=== PATIENT | male | born 1980 | race Caucasian/White ===

== ENCOUNTER 2023-02-01 13:22 | Emergency (ER) | payer SELFPAY ==
--- NOTE | ~2023-02-01 | XR_ITS ---
EXAMINATION: XR chest 1V portable DATE: 02/01/2023 13:54 INDICATION: Cerebral vascular accident. TECHNIQUE: A single frontal view of the chest was obtained. COMPARISON: None. FINDINGS: There is no pneumonia, pleural effusion, or pneumothorax. The heart size is normal. IMPRESSION: 1. No acute cardiopulmonary disease. Reviewed, dictated and finalized at location E.
--- NOTE | ~2023-02-01 | CT_ITS ---
EXAMINATION: CT brain wo con DATE: 02/01/2023 13:33 INDICATION: Left facial weakness. TECHNIQUE: Computed tomography (CT) of the head was performed without intravenous contrast. The mA wa s adjusted according to patient size. Iterative reconstruction technique was employed. The dose-lengt h product was 605.33 mGy-cm. COMPARISON: None FINDINGS: There is no intracranial hemorrhage, acute infarction, or abnormal intracranial mass lesion . The ventricles are normal in size. The paranasal sinuses are clear. The mastoid air cells are aly l. The orbits are normal. IMPRESSION: 1. Normal brain. I called this result to Dr. Inocente Bhat. Reviewed, dictated and finalized at location E.
--- NOTE | 2023-02-01 13:25 | ECG_ITS ---
Measurements Intervals [place] Rate: 78 P: 33 SD: 189 QRS: -8 QRSD: 114 T: 17 QT: 384 QTc: 439 Interpretive Statements SINUS RHYTHM INCOMPLETE RIGHT BUNDLE BRANCH BLOCK DELAYED PRECORDIAL R/S TRANSITION BASELINE ARTIFACT- I, II, III, AVR, AVL, AVF, V3 BORDERLINE ECG NO PREVIOUS ECG AVAILABLE FOR COMPARISON Electronically Signed On 02-01-2023 13:54:59 CDT by Kale Toscano D.O.
--- NOTE | 2023-02-01 13:31 | ED.NEUROSD ---
HPI - Neuro Symptoms/Deficit General Chief Complaint: Suspected CVA Stated Complaint: poss CVA Time Seen by Provider: 02/01/23 13:28 History of Present Illness HPI Narrative: Patient is a 43-year-old male with a past medical history of factor V Leiden, MS and a previous CVAs presents to the emergency department this afternoon complaining of left-sided facial droop and left arm weakness. Patient states that he went to bed at 8 PM with a mild headache but no motor deficits and woke up this morning with the deficits listed above. 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 Patient denies any chest pain, shortness of breath, nausea, vomiting, abdominal pain, dysuria, hematuria, constipation, diarrhea, melena, hematochezia, fevers or chills. He also denies any current headaches, dizziness, lightheadedness, blurry visions, dizziness, focal weakness, numbness and or tingling. There are no other modifying, alleviating, or precipitating factors at this time. Related Data Allergies Allergy/AdvReac Type Severity Reaction Status Date / Time aripiprazole Allergy Rash Verified 02/01/23 13:55 hydrocodone Allergy Unknown Verified 02/01/23 13:55 Iodinated Contrast Media Allergy Anaphylaxis Verified 02/01/23 13:41 penicillin G Allergy Unknown Verified 02/01/23 13:55 Review of Systems Review of Systems: All systems are reviewed and are negative unless stated otherwise in the HPI. Exam Narrative: General: Alert, awake, afebrile, in no acute distress. HEENT: PERRL, no rhinorrhea, no post nasal drip, oropharynx clear, left-sided facial droop sparing the forehead. Neck: Trachea midline, no JVD, no lymphadenopathy. Cardiovascular: Regular rate and rhythm, no murmurs, rubs or gallops, no peripheral edema. Respiratory: Clear to auscultation bilaterally, no tachypnea, no wheezing, no rhonchi, no rubs, no respiratory distress. Abdomen: Soft, nontender, nondistended, no rebound, no guarding, no peritoneal signs. Musculoskeletal: No joint swelling or deformity, normal muscle tone. Skin: No rashes or petechia, no signs of infection. Psychiatric: Alert and oriented, normal behavior and judgment for situation. Neurological: Alert and oriented to person, place, and time. Follows all commands. Left-sided facial droop sparing the forehead, left upper extremity weakness 2 out of 5 motor strength, left lower extremity weakness 4 out of 5, decreased sensation over the left face over the V1, V2, and V3 cranial nerve distribution, NIH 7, GCS 15. Course Vital Signs Vital signs: Vital Signs Temperature 97.6 F 02/01/23 13:43 Pulse Rate 79 02/01/23 13:43 Respiratory Rate 18 02/01/23 13:43 Blood Pressure 129/83 02/01/23 13:43 Pulse Oximetry 99 02/01/23 13:43 Oxygen Delivery Room Air 02/01/23 13:43 Temperature 97.6 F 02/01/23 14:13 Pulse Rate 90 02/01/23 14:13 Respiratory Rate 18 02/01/23 14:13 Blood Pressure 126/76 02/01/23 14:13 Pulse Oximetry 98 02/01/23 14:13 Oxygen Delivery Room Air 02/01/23 13:43 MDM - Neuro Symptoms/Deficit MDM Narrative Medical decision making narrative: The patient was evaluated by myself in the emergency department. History is obtained from patient who is an independent historian and physical exam was performed. External medical records were reviewed at this time. IV was established and pertinent tests were ordered. Code stroke was activated immediately upon patient's arrival due to an NIH of 7 and the patient was immediately taken to the CT scaner. EKG was obtained which revealed sinus rhythm at a rate of [address] changes, T wave inversions or evidence of acute ischemia. EKG was independently interpreted by me and is currently pending official cardiology read. Laboratory results obtained revealing no acute process. Imaging studies obtained included a CT brain withou
[2023-02-01 13:39] LABS: Estimated Glomerular Filt Rate > 60
[2023-02-01 13:43] VITALS: BP 129/83; PULSE 79; RESP 18; TEMP 36.4; O2SAT 99
[2023-02-01 14:00] LABS: Alanine Aminotransferase 47 U/L (6-50); Albumin Level 4.8 g/dL (3.5-5.1); Alkaline Phosphatase 68 U/L (38-126); Anion Gap 9 mmol/L (8-16); Aspartate Amino Transferase 30 U/L (17-59); Bilirubin,Total 0.7 mg/dL (0.2-1.3); Blood Urea Nitrogen 9 mg/dL (9-20); Calcium 9.3 mg/dL (8.4-10.2); Carbon Dioxide 26 mmol/L (22-30); Chloride 103 mmol/L (98-107); Estimated CRCL calculation 143 ml/min; Estimated Glomerular Filt Rate > 60; Glucose 148 mg/dL (65-110); Potassium 3.7 mmol/L (3.4-5.0); Sodium 138 mmol/L (137-145)
[2023-02-01 14:01] LABS: INR 0.9; Prothrombin Time 13.1 Seconds (11.1-14.7)
[2023-02-01 14:02] LABS: Partial Thromboplastin Time 28.5 SECONDS (22.3-36.8)
[2023-02-01 14:03] LABS: Hematocrit 45.7 % (42.0-52.0); Hemoglobin 15.8 g/dL (14.0-18.0); Mean Corpuscular HGB Conc 34.6 g/dl (32-36); Mean Corpuscular Hemoglobin 28.5 pg (26-34); Mean Corpuscular Volume 82.3 fl (80-100); Red Blood Count 5.55 M/mm3 (4.6-6.20); Red Cell Distribution Width 12.6 % (11.5-14.5); White Blood Count 8.1 K/mm3 (4.5-10.0)
[2023-02-01 14:04] LABS: Basophils Percent Auto 0.7 % (0.2-1.2); Eosinophils Percent Auto 2.3 % (0-4.4); Immature Granulocyte Absolute 0.05 K/mm3 (0.00-0.031); Immature Granulocyte Percent A 0.6 % (0-0.5); Lymphocytes Percent Auto 37.6 % (18.3-44.2); Mean Platelet Volume 10.2 fl (7.4-10.4); Monocytes Percent Auto 7.6 % (2.6-8.5); Neutrophils Absolute Auto 4.2 K/mm3 (1.3-6.7); Neutrophils Percent Auto 51.2 % (45.5-73.1); Nucleated Red Blood Cells Perc 0.5 % (0.0-0.2); Platelet Count Result 244 k/mm3 (150-375)
[2023-02-01 14:05] LABS: Basophils Absolute Auto 0.1 K/mm3 (0.0-0.1); Eosinophils Absolute Auto 0.2 K/mm3 (0-0.3); Lymphocytes Absolute Auto 3.05 K/mm3 (0.9-3.2); Monocytes Absolute Auto 0.6 K/mm3 (0.1-0.6)
[2023-02-01 14:10] LABS: Troponin I 0.012 ng/mL (0.000-0.034)
[2023-02-01 14:13] VITALS: BP 126/76; PULSE 90; RESP 18; TEMP 36.4; O2SAT 98
[2023-02-01 15:47] LABS: Glucose Point of Care 158 mg/dl (65-105)
--- NOTE | 2023-02-01 17:59 | PC.NURSE ---
[facility] contacted for patient's spouses numberPauline Aguirre at [phone] called regarding left behind ipad. No answer, message left.
== END 2023-02-01 14:17 | disposition short-term general hospital (02) ==
LOC: ANHED 14:04
PROVIDERS: Emergency Provider Emergency Medicine
DX: I63.9 Cerebral infarction, unspecified (principal); R29.704 NIHSS score 4; D68.51 Activated protein C resistance; G35 Multiple sclerosis; Z86.73 Personal history of transient ischemic attack (TIA), and cerebral infarction without residual deficits; Z79.01 Long term (current) use of anticoagulants; I45.10 Unspecified right bundle-branch block
CPT/HCPCS: 70450; 71045; 80053; 82948; 84484; 85025; 85610; 85730; 93005; 99285